=== PATIENT | female | born 1970 | race Caucasian/White ===

== ENCOUNTER → 2022-05-24 | Outpatient (CLI) | payer OTHER ==
--- NOTE | 2022-05-24 13:14 | US ---
EXAMINATION TYPE: US kidneys/renal and bladder DATE OF EXAM: 05/24/2022 COMPARISON: NONE CLINICAL HISTORY: R31.9 HEMATURIA, UNSPECIFIED. EXAM MEASUREMENTS: Right Kidney: 11.2 X 3.8 X 5.2 cm Left Kidney: 12.8 X 4.7 X 5.7 cm Post Void Residual Volume: 19.7 mL Right Kidney: No hydronephrosis or masses seen Left Kidney: Mild to moderate hydronephrosis, no obvious stones seen. Bladder: wnl Bilateral Jets seen: Yes Normal Post Void Residual: Yes No nephrolithiasis is seen. No masses are identified. The urinary bladder is anechoic. Bilateral u reteral jets are seen. IMPRESSION: Mild to moderate left-sided hydronephrosis.
== END | disposition home or self-care (01) ==
LOC: RADUSWWP 12:25
PROVIDERS: ATTEND Family Medicine
DX: N13.30 Unspecified hydronephrosis (principal)
CPT/HCPCS: 76770

== ENCOUNTER → 2022-06-14 | Outpatient (CLI) | payer OTHER ==
[2022-06-14 13:16] LABS: African American GFR (CKD) >90 (>60 ml/min/1.73 sqM); Blood Urea Nitrogen 11 mg/dL (7-17); Non-African American GFR(CKD) >90 (>60 ml/min/1.73 sqM)
--- NOTE | 2022-06-16 18:49 | CT ---
EXAMINATION TYPE: CT urogram wo/w con CT DLP: 1731.8 mGycm, Automated exposure control for dose reduction was used. DATE OF EXAM: 06/14/2022 2:29 PM COMPARISON: 05/24/2022 ultrasound CLINICAL INDICATION:Female, 52 years old with history of R31.0, microscopic hematuria TECHNIQUE: Urogram with imaging of the abdomen and pelvis. Coronal and sagittal reformats were performed. Contrast used:100ml mL of Isovue 300 with IV Contrast, Oral contrast used: None. FINDINGS: LOWER CHEST: No significant findings. GENITOURINARY: RIGHT KIDNEY AND URETER: No calculi. No hydronephrosis or hydroureter. No renal mass or other lesions . No urothelial lesions: no filling defect, dilation, stricture or wall thickening. LEFT KIDNEY AND URETER: No calculi. Mild hydronephrosis suspected to be secondary to sharp bend in th e renal pelvis best appreciated on series 26 image 110. No renal mass or other lesions. No urothelial lesions: no filling defect, dilation or wall thickening. URINARY BLADDER: Not optimally distended. Limited evaluation secondary to partial filling of the blad alex with excreted IV contrast. No calculi or obvious mass. REPRODUCTIVE: Unremarkable. ABDOMEN LIVER: Unremarkable. GALLBLADDER AND BILE DUCTS: Multiple gallstones are layering within the gallbladder. PANCREAS: Unremarkable. SPLEEN: Borderline enlarged measuring 13.5 cm. ADRENAL GLANDS: Unremarkable. STOMACH AND BOWEL: . No evidence of bowel obstruction. PERITONEUM: No evidence of pneumoperitoneum, free fluid, or adenopathy. VASCULATURE: No evidence of aortic aneurysm. MUSCULOSKELETAL: No acute osseous abnormalities LYMPH NODES: No gross evidence for lymphadenopathy. SOFT TISSUE/ABDOMINAL WALL: Unremarkable IMPRESSION: 1. No evidence of urolithiasis or renal/urothelial neoplasm. 2. Mild left hydronephrosis secondary to suspected sharp turn in the collecting system at the uretero pelvic junction resulting in dilation of the renal pelvis and calyces on the left. 3. Cholelithiasis.
== END | disposition home or self-care (01) ==
LOC: RADCTMAIN 12:03
PROVIDERS: ATTEND Urology
DX: K80.20 Calculus of gallbladder without cholecystitis without obstruction (principal); N13.30 Unspecified hydronephrosis
CPT/HCPCS: 82565; 84520; 74178; 36415; 74400; Q9967